=== PATIENT | male | born 1970 | race American Indian/Alaskan Native ===

== ENCOUNTER 2018-06-11 19:55 | Emergency (ER) | payer SELFPAY ==
[2018-06-11] MEDS ORDERED: TYLENOL PO ONE (22:01)
[2018-06-11] MEDS ORDERED: TYLENOL ONE (22:06)
[2018-06-12] MEDS ORDERED: MOTRIN PO ONE (01:02)
--- NOTE | 2018-06-12 01:04 | Emergency Department Report ---
ED ENT HPI - General Chief complaint: Dental/Oral Stated complaint: RT JAW PAIN Time Seen by Provider: 06/12/18 00:46 Source: patient Mode of arrival: Ambulatory Limitations: No Limitations - History of Present Illness Initial comments: 48-year-old -[place] male presents to the emergency room with complaints of right sided oral dental pain and swelling 3 days. Patient reports he's been taken Augmentin for 2-1/2 weeks. 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 Patient reports he is not taking anything for pain. He was given Tylenol in triage. Patient denies any fever chills no nausea vomiting. Ports no past medical history currently takes no medications on a daily basis and no known drug allergies. MD complaint: tooth pain -: days(s) (3) Location: tooth # (32) Severity: severe Severity scale (0 -10): 7 Quality: aching Consistency: constant Improves with: none Worsens with: none - Related Data Previous Rx's Medication Instructions Recorded Last Taken Type Clindamycin [Clindamycin CAP] 300 mg PO Q8H #30 cap 06/12/18 Unknown Rx Ibuprofen [Motrin 600 MG tab] 600 mg PO Q8H #30 tablet 06/12/18 Unknown Rx Allergies Allergy/AdvReac Type Severity Reaction Status Date / Time No Known Allergies Allergy Verified 06/11/18 20:18 ED Dental HPI - General Chief complaint: Dental/Oral Stated complaint: RT JAW PAIN Time Seen by Provider: 06/12/18 00:46 Source: patient Mode of arrival: Ambulatory Limitations: No Limitations - Related Data Previous Rx's Medication Instructions Recorded Last Taken Type Clindamycin [Clindamycin CAP] 300 mg PO Q8H #30 cap 06/12/18 Unknown Rx Ibuprofen [Motrin 600 MG tab] 600 mg PO Q8H #30 tablet 06/12/18 Unknown Rx Allergies Allergy/AdvReac Type Severity Reaction Status Date / Time No Known Allergies Allergy Verified 06/11/18 20:18 ED Review of Systems ROS: Stated complaint: RT JAW PAIN Other details as noted in HPI Comment: All other systems reviewed and negative ENT: dental pain ED Past Medical Hx - Past Medical History Previous Medical History?: No - Surgical History Past Surgical History?: No - Social History Smoking Status: Never Smoker Substance Use Type: None - Medications Home Medications: Home Medications Medication Instructions Recorded Confirmed Last Taken Type Clindamycin [Clindamycin CAP] 300 mg PO Q8H #30 cap 06/12/18 Unknown Rx Ibuprofen [Motrin 600 MG tab] 600 mg PO Q8H #30 tablet 06/12/18 Unknown Rx ED Physical Exam - General Limitations: No Limitations General appearance: alert, in no apparent distress - Head Head exam: Present: atraumatic, normocephalic - Eye Eye exam: Present: EOMI - Expanded ENT Exam Expanded Teeth exam: Present: dental caries, dental tenderness # (32), gingival enlargement - Neck Neck exam: Present: tenderness, lymphadenopathy (right ) - Respiratory Respiratory exam: Present: normal lung sounds bilaterally. Absent: respiratory distress - Cardiovascular Cardiovascular Exam: Present: regular rate, normal rhythm. Absent: systolic murmur, diastolic murmur, rubs, gallop ED Course Vital Signs 06/11/18 20:18 Temperature 99.7 F H Pulse Rate 80 Respiratory 16 Rate Blood Pressure 131/87 O2 Sat by Pulse 99 Oximetry ED Medical Decision Making - Medical Decision Making Patient has been evaluated by this provider fast track. Ibuprofen given for pain management Discharge patient on Cleocin and ibuprofen. Referral to dental clinic to have tooth evaluated and treated. Patient is given handouts local dentistry's Critical care attestation.: If time is entered above; I have spent that time in minutes in the direct care of this critically ill patient, excluding procedure time. ED Disposition Clinical Impression: Abscess, dental Disposition: [id number] TO HOME OR SELFCARE Is pt being admited?: No Does the pt Need Aspirin: No Condition: Stable Instructions: Dental Abscess (ED) Additional Instructions: Complete antibiotics as prescribed. Motrin for pain management. Follow up with the dental clinic for further evaluation and treatment. Prescriptions: Clindamycin [Clindamycin CAP] 300 mg PO Q8H #30 cap Ibuprofen [Motrin 600 MG tab] 600 mg PO Q8H #30 tablet Referrals: PRIMARY CARE, [Primary Care Provider] - 3-5 Days [facility] [Outside] - 3-5 Days [facility] [Outside] - 3-5 Days [facility] [Outside] - 3-5 Days
[2018-06-12 02:12] VITALS: BP 132/88
== END 2018-06-12 02:12 | disposition home or self-care (01) ==
LOC: ED 19:55
DX: K04.7 Periapical abscess without sinus (principal)
CPT/HCPCS: 99282